=== PATIENT | female | born 1975 | race Caucasian/White ===

== ENCOUNTER 2018-12-06 23:19 | Emergency (ER) | payer OTHER ==
[~2018-12-06] VITALS: Ht 170.1 cm; Wt 59.0 kg
[~2018-12-06 23:19] MED LIST: ALPRAZOLAM2 MG PO; ANAPROX DS550 MG PO; BACTRIM DS 8001 TA1 PO; BACTROBAN OINT22 GM PO; BENADRYL50 MG PO; BIAXIN500 MG PO; CIPROFLOXACIN500 MG PO; DIAZEPAM10 MG PO; FLAGYL500 MG PO; HYDROCODONE BIT1 T11 PO; KEFLEX500 MG PO; MOTRIN800 MG PO; NAPROSYN500 MG PO; PREDNISONE20 MG PO; ROBAXIN750 MG PO; TRAMADOL HCL50 MG PO; ULTRAM50 MG PO; VALIUM10 MG PO; VICODIN 5/500 505 MG PO; XANAX2 MG PO; ZITHROMAX Z PA250 MG PO; ZOFRAN ODT4 MG SL
[2018-12-06 23:22] VITALS: BP 125/81
== END 2018-12-07 01:30 | disposition home or self-care (01) ==
LOC: ED 23:19
DX: M54.2 Cervicalgia (principal); F17.200 Nicotine dependence, unspecified, uncomplicated; Z88.1 Allergy status to other antibiotic agents; Z88.8 Allergy status to other drugs, medicaments and biological substances; Z79.899 Other long term (current) drug therapy; V47.6XXA Car passenger injured in collision with fixed or stationary object in traffic accident, initial encounter; Y93.89 Activity, other specified; Y92.488 Other paved roadways as the place of occurrence of the external cause; Y99.8 Other external cause status